=== PATIENT | male | born 1985 | race Caucasian/White ===

== ENCOUNTER 2023-06-26 10:33 | Observation (INO) | payer SELFPAY ==
[2023-06-26 11:44] LABS: BASOPHILS PERCENT AUTO 0.4 % (0.0-1.0); EOSINOPHILS PERCENT AUTO 2.1 % (1.0-3.0); HEMATOCRIT 44.5 % (40.0-54.0); HEMOGLOBIN 15.7 g/dL (14.0-18.0); LYMPHOCYTES PERCENT AUTO 13.7 % (20.5-50.1); MEAN CORPUSCULAR HGB CONC 35.3 g/dL (33.0-35.0); MEAN CORPUSCULAR VOLUME 87.9 fL (80-100); MONOCYTES PERCENT AUTO 5.5 % (2-8); NEUTROPHILS PERCENT AUTO 78.3 % (42.2-75.2); PLATELET COUNT,PLT 191 10^3/uL (150-450); RED BLOOD CELL COUNT 5.06 10^6/uL (4.6-6.2); WHITE BLOOD CELL COUNT,WBC 8.1 10^3/uL (5.0-10.0)
[2023-06-26 11:52] LABS: ALBUMIN 3.8 g/dL (3.4-5.0); ANION GAP 14.6 mEq/L (7-13); BILIRUBIN TOTAL 0.2 mg/dL (0.2-1.0); CALCIUM 8.6 mg/dL (8.5-10.1); CREATININE 0.9 mg/dL (0.70-1.30); EST CRCL DRUG DOSING (CG) 119.69 mL/min; PROTEIN TOTAL,TP 7.5 g/dL (6.4-8.2)
[2023-06-26] MEDS: Sodium Chloride 0.9% 10 ML Syringe FLUSH PRN (11:58)
[2023-06-26 12:07] LABS: POTASSIUM,K 1.6 mmol/L (3.5-5.1)
[2023-06-26] MEDS: Potassium Chloride 20 MEQ in Premix Bag 1 BAG IV ONE ×2 (12:20→16:13)
[2023-06-26] MEDS: Potassium Chloride 10 MEQ Tab.ER PO ONE ×2 (12:20→16:13)
[2023-06-26] MEDS ORDERED: Sennosides/Docusate Sodium 50-8.6 MG Tab PO PRN (13:28)
[2023-06-26] MEDS ORDERED: Ondansetron 4 MG/2 ML SDV IVPUSH PRN (13:28)
[2023-06-26] MEDS ORDERED: Magnesium Hydroxide 400 MG/5 ML Susp 30 ML Cup PO PRN (13:28)
[2023-06-26] MEDS ORDERED: Albuterol/Ipratropium 3.0-0.5 MG/3 ML Neb Soln NEB PRN (13:28)
[2023-06-26] MEDS ORDERED: Acetaminophen 325 MG Tab PO PRN (13:28)
[2023-06-26] MEDS ORDERED: Temazepam 15 MG Cap PO PRN (13:28)
[2023-06-26] MEDS ORDERED: Ketorolac 30 MG/ML SDV IVPUSH PRN (13:28)
[2023-06-26] MEDS ORDERED: Polyethylene Glycol 3350 Powder 17 GM Packet PO PRN (13:28)
[2023-06-26] MEDS ORDERED: traMADol 50 MG Tab PO PRN (13:31)
[2023-06-26 13:57] LABS: MAGNESIUM 1.6 mg/dL (1.8-2.4); T4 FREE 0.89 ng/dL (0.76-1.46); TSH ULTRASENSITIVE 1.05 uIU/mL (0.36-3.74)
[2023-06-26 13:59] LABS: ETHANOL BLOOD MEDICAL < 3 mg/dL (0)
[2023-06-26] MEDS: MVI, Adult with Vitamin K 10 ML, Folic Acid 1 MG, Thiamine 100 MG in Lactated Ringers 1... IV ONE (15:21)
[2023-06-26] MEDS: Pantoprazole 40 MG Vial IVPUSH ONE (15:21)
[2023-06-26] MEDS: Magnesium Sulfate/Water 2 GM in Premix Bag 1 BAG IV ONE ×2 (16:12→21:03)
[2023-06-26 19:39] LABS: AMPHETAMINES,URINE NEGATIVE (NEGATIVE); BARBITURATES,URINE NEGATIVE (NEGATIVE); BENZODIAZEPINE,URINE NEGATIVE (NEGATIVE); MDMA (ECSTASY), URINE NEGATIVE (NEGATIVE); METHADONE,URINE NEGATIVE (NEGATIVE); METHAMPHETAMINES,URINE NEGATIVE (NEGATIVE); OPIATES,URINE NEGATIVE (NEGATIVE); OXYCODONE,URINE NEGATIVE (NEGATIVE); PHENCYCLIDINE,URINE NEGATIVE (NEGATIVE); TCA,URINE NEGATIVE (NEGATIVE)
[2023-06-26] MEDS: Famotidine 20 MG Tab PO SCH (21:04)
[2023-06-27 06:56] LABS: BASOPHILS PERCENT AUTO 0.3 % (0.0-1.0); EOSINOPHILS PERCENT AUTO 5.6 % (1.0-3.0); HEMATOCRIT 41.8 % (40.0-54.0); HEMOGLOBIN 14.5 g/dL (14.0-18.0); LYMPHOCYTES PERCENT AUTO 31.2 % (20.5-50.1); MEAN CORPUSCULAR HEMOGLOBIN 30.9 pg (27.0-34.0); MEAN CORPUSCULAR HGB CONC 34.7 g/dL (33.0-35.0); MEAN CORPUSCULAR VOLUME 88.9 fL (80-100); MONOCYTES PERCENT AUTO 6.6 % (2-8); NEUTROPHILS PERCENT AUTO 56.3 % (42.2-75.2); PLATELET COUNT,PLT 208 10^3/uL (150-450); WHITE BLOOD CELL COUNT,WBC 7.6 10^3/uL (5.0-10.0)
[2023-06-27 07:09] LABS: ALBUMIN 3.3 g/dL (3.4-5.0); ANION GAP 10.5 mEq/L (7-13); BILIRUBIN TOTAL 0.5 mg/dL (0.2-1.0); BUN/CREATININE RATIO 5.7 (No establ ref range); CALCIUM 8.1 mg/dL (8.5-10.1); CREATININE 0.88 mg/dL (0.70-1.30); EST CRCL DRUG DOSING (CG) 122.41 mL/min; MAGNESIUM 2.5 mg/dL (1.8-2.4); POTASSIUM,K 4.5 mmol/L (3.5-5.1); PROTEIN TOTAL,TP 6.6 g/dL (6.4-8.2)
[2023-06-27 13:01] VITALS: BP 133/83; PULSE 53
== END 2023-06-27 14:45 | disposition home or self-care (01) ==
LOC: DL.ED 10:33 → DL.MS 13:12
PROVIDERS: ADMIT Internal Medicine; ATTEND Internal Medicine
DX: E87.6 Hypokalemia (principal); F12.10 Cannabis abuse, uncomplicated; F19.10 Other psychoactive substance abuse, uncomplicated; E86.0 Dehydration; E83.42 Hypomagnesemia; R53.1 Weakness; R55 Syncope and collapse; R73.9 Hyperglycemia, unspecified; R11.2 Nausea with vomiting, unspecified; R19.7 Diarrhea, unspecified
CPT/HCPCS: 36415; 71045; 80053; 80305; 80307; 82306; 82550; 83735; 84133; 84439; 84443; 85025; 93005; 93010; 93306; 93880; 99284; 99285; A9270; C9113; J3411; J3475; J3480; J7120; 96365; 96366; 96367; 96368; 96375; G0378; J3490